=== PATIENT | female | born 1970 | race Two or more races ===

== ENCOUNTER 2016-05-25 17:41 | Emergency (ER) | payer MEDICARE, MEDICAID ==
[2016-05-25] MEDS ORDERED: LACTATED RINGERS 1,000 ML ONE (18:48)
[2016-05-25] MEDS ORDERED: KETOROLAC TROMETHAMINE 30 MG/ML 1 ML VIAL ONE (18:49)
[2016-05-25 19:10] LABS: ABSOLUTE NEUTROPHIL COUNT 4.8 K/mm3 (1.8-7.7); BASO % 0.3 % (0.2-1.0); EOS # 0.3 (0.0-0.5); EOS % 3.5 % (0.9-2.9); HEMATOCRIT 25.4 % (37.0-47.0); IMM NEUT% 0.4 % (0-1); LYMPH # 1.3 (1.0-4.8); LYMPH % 17.4 % (15-45); MEAN CELL VOLUME 92.4 fl (81.0-99.0); MEAN CORPUSCULAR HEMOGLOBIN 29.1 pg (27.0-31.0); MEAN CORPUSCULAR HGB CONC 31.5 g/dl (33.0-37.0); MEAN PLATELET VOLUME 9.7 fl (7.4-10.4); MONO # 0.8 (0.0-0.8); MONO % 11.1 % (4-12); NEUT % 67.3 % (43-75); PLATELET COUNT 304 K/mm3 (130-400); RED CELL DISTRIBUTION WIDTH 13.3 % (11.5-14.5)
[2016-05-25] MEDS ORDERED: LORAZEPAM 2 MG/ML 1ML SDV ONE (19:13)
[2016-05-25 19:22] LABS: CALCIUM 8.3 mg/dL (8.6-10.3)
[2016-05-25 20:49] LABS: PLATELET ESTIMATE NORMAL (NORMAL)
== END 2016-05-25 20:24 | disposition home or self-care (01) ==
LOC: ED 17:41
DX: G89.18 Other acute postprocedural pain (principal); K43.9 Ventral hernia without obstruction or gangrene; Y83.8 Other surgical procedures as the cause of abnormal reaction of the patient, or of later complication, without mention of misadventure at the time of the procedure
CPT/HCPCS: 85025; 80053; 96375; 99283 ×2; 96374; J2060; J1885; J7120